=== PATIENT | male | born 1985 | race Asian ===

== ENCOUNTER 2020-07-09 20:50 | Emergency (ER) | payer OTHER ==
[~2020-07-09] VITALS: Ht 175.3 cm; Wt 84.1 kg
[2020-07-09 21:13] VITALS: TEMP 98.5
[2020-07-09 22:09] LABS: STREP SCREEN NEGATIVE
[2020-07-09 22:24] VITALS: BP 135/99; PULSE 63
== END 2020-07-09 22:32 | disposition home or self-care (01) ==
LOC: COL.ER 20:50
PROVIDERS: Physician Assistant
DX: U07.1 COVID-19 (principal); Z23 Encounter for immunization